=== PATIENT | female | born 1960 | race African-American/Black ===

== ENCOUNTER 2018-02-03 18:34 | Emergency (ER) | payer OTHER, MEDICAID ==
[~2018-02-03] VITALS: Ht 167.6 cm; Wt 71.8 kg
[~2018-02-03 18:34] MED LIST: ARMO250T6 PO; DIAZ10 PO; HYDR-3971 PO; OXYC80 PO
[2018-02-03] MEDS ORDERED: KETOROLAC TROMETHAMINE 10 MG TABLET PO ONE (21:00)
[2018-02-03 21:10] VITALS: BP 149/94
== END 2018-02-03 21:28 | disposition home or self-care (01) ==
LOC: EMS 18:35
DX: S43.402A Unspecified sprain of left shoulder joint, initial encounter (principal); M19.012 Primary osteoarthritis, left shoulder; F12.90 Cannabis use, unspecified, uncomplicated; F17.210 Nicotine dependence, cigarettes, uncomplicated; Z88.1 Allergy status to other antibiotic agents; X50.0XXA Overexertion from strenuous movement or load, initial encounter; Y93.89 Activity, other specified; Y92.89 Other specified places as the place of occurrence of the external cause; Y99.8 Other external cause status
CPT/HCPCS: 99284

== ENCOUNTER 2019-09-09 18:04 | Emergency (ER) | payer OTHER, MEDICAID ==
[~2019-09-09] VITALS: Ht 170.2 cm; Wt 71.8 kg
[~2019-09-09 18:04] MED LIST changes: -ARMO250T6 PO; -DIAZ10 PO; -OXYC80 PO; +OXYC80TA40 PO
[2019-09-09 18:14] VITALS: BP 149/90
== END 2019-09-09 18:40 | disposition left against medical advice (07) ==
LOC: EMS 18:05
DX: M79.89 Other specified soft tissue disorders (principal); Z53.21 Procedure and treatment not carried out due to patient leaving prior to being seen by health care provider

== ENCOUNTER 2019-09-10 18:56 | Emergency (ER) | payer OTHER ==
[~2019-09-10] VITALS: Ht 170.2 cm; Wt 71.8 kg
[2019-09-10 18:57] VITALS: BP 139/83
[2019-09-10] MEDS ORDERED: POVIDONE-IODINE 10% 120 ML SOLUTION TP ONE (19:30)
[2019-09-10] MEDS ORDERED: BUPIVACAINE HCL/PF 0.25% 10 ML VIAL INJ ONE (19:30)
== END 2019-09-10 20:16 | disposition home or self-care (01) ==
LOC: EMS 18:56
DX: L03.012 Cellulitis of left finger (principal); F12.90 Cannabis use, unspecified, uncomplicated; Z88.1 Allergy status to other antibiotic agents
CPT/HCPCS: 10060; 99283; J3490

== ENCOUNTER 2021-05-04 21:04 | Emergency (ER) | payer OTHER ==
[~2021-05-04] VITALS: Ht 170.2 cm; Wt 72.7 kg
[2021-05-04 22:12] VITALS: BP 159/89
== END 2021-05-04 22:55 | disposition home or self-care (01) ==
LOC: EMS 21:11
DX: K02.9 Dental caries, unspecified (principal); R10.30 Lower abdominal pain, unspecified; F12.90 Cannabis use, unspecified, uncomplicated; F17.210 Nicotine dependence, cigarettes, uncomplicated; Z88.1 Allergy status to other antibiotic agents
CPT/HCPCS: 99282; 99406; Z7502

== ENCOUNTER 2022-05-26 14:14 | Emergency (ER) | payer OTHER ==
[~2022-05-26] VITALS: Ht 170.2 cm; Wt 70.9 kg
[2022-05-26 14:49] VITALS: BP 122/83
== END 2022-05-26 19:20 | disposition left against medical advice (07) ==
LOC: EMS 14:26
DX: Z53.21 Procedure and treatment not carried out due to patient leaving prior to being seen by health care provider (principal)
CPT/HCPCS: 71046

== ENCOUNTER 2025-03-24 01:33 | Emergency (ER) | payer OTHER ==
[~2025-03-24] VITALS: Ht 170.2 cm; Wt 69.5 kg
[2025-03-24] MEDS: ACETAMINOPHEN 1000 MG/ISO-OSM 100 ML IV ONE (03:13)
[2025-03-24] MEDS: KETOROLAC TROMETHAMINE 30 MG/ML VIAL IVP ONE (03:17)
[2025-03-24] MEDS: ETOMIDATE 2 MG/ML 10 ML VIAL IVP ONE (03:35)
[2025-03-24] MEDS: PERTUSS(ACELL),DIPH,TET/PF 0.5 ML SYRINGE [ADULT] IM. ONE (03:36)
[2025-03-24 03:44] VITALS: TEMP 98.4
[2025-03-24 05:15] VITALS: O2SAT 99
[2025-03-24 05:20] VITALS: BP 160/82; PULSE 82; RESP 18; O2SAT 97
[2025-03-25] MEDS ORDERED: ACET-3385 PO (18:26)
== END 2025-03-24 05:59 | disposition home or self-care (01) ==
LOC: EMS 01:34
DX: S53.125A Posterior dislocation of left ulnohumeral joint, initial encounter (principal); S52.042A Displaced fracture of coronoid process of left ulna, initial encounter for closed fracture; S00.83XA Contusion of other part of head, initial encounter; F12.90 Cannabis use, unspecified, uncomplicated; G89.29 Other chronic pain; F17.210 Nicotine dependence, cigarettes, uncomplicated; Z98.890 Other specified postprocedural states; V87.8XXA Person injured in other specified noncollision transport accidents involving motor vehicle (traffic), initial encounter; Y93.89 Activity, other specified; Y92.89 Other specified places as the place of occurrence of the external cause; Y99.8 Other external cause status
CPT/HCPCS: 99285; 24600; 96374; 73070; 73080; 73090; 73100; 73130; 90715; 90471; 99152; J3490; J0131

== ENCOUNTER 2025-03-25 18:06 | Emergency (ER) | payer OTHER ==
[~2025-03-25] VITALS: Ht 168.9 cm; Wt 7.1 kg
[2025-03-25 18:18] VITALS: BP 113/97; PULSE 98; RESP 18; TEMP 98.1; O2SAT 98
[2025-03-25] MEDS ORDERED: ACET-3385 PO (18:26)
[2025-03-25] MEDS: ACETAMINOPHEN 500 MG TABLET PO ONE (22:44)
[2025-03-26] MEDS ORDERED: PERCT PO (23:29)
== END 2025-03-26 00:12 | disposition home or self-care (01) ==
LOC: EDUNIT# 18:06 → EMS 18:06
DX: S52.122A Displaced fracture of head of left radius, initial encounter for closed fracture (principal); F12.90 Cannabis use, unspecified, uncomplicated; F17.210 Nicotine dependence, cigarettes, uncomplicated; Z98.890 Other specified postprocedural states; Z79.899 Other long term (current) drug therapy; Z88.1 Allergy status to other antibiotic agents; X58.XXXA Exposure to other specified factors, initial encounter; Y93.89 Activity, other specified; Y92.89 Other specified places as the place of occurrence of the external cause; Y99.8 Other external cause status
CPT/HCPCS: 99283

== ENCOUNTER 2025-03-26 22:59 | Emergency (ER) | payer OTHER ==
[~2025-03-26] VITALS: Ht 160 cm; Wt 70.9 kg
[~2025-03-26 22:59] MED LIST changes: +ACET-3385 PO; -HYDR-3971 PO; -OXYC80TA40 PO
[2025-03-26 23:04] VITALS: TEMP 97.9
[2025-03-26] MEDS ORDERED: PERCT PO (23:29)
[2025-03-27] MEDS: KETOROLAC TROMETHAMINE 30 MG/ML VIAL IM ONE (00:02)
[2025-03-27] MEDS: OxyCODONE HCL/ACETAMINOPHEN 5-325 MG TABLET PO ONE (00:02)
[2025-03-27 01:05] VITALS: BP 149/75; PULSE 99; RESP 19; O2SAT 97
== END 2025-03-27 01:13 | disposition home or self-care (01) ==
LOC: EMS 23:37
DX: S52.122A Displaced fracture of head of left radius, initial encounter for closed fracture (principal); F17.210 Nicotine dependence, cigarettes, uncomplicated; F12.90 Cannabis use, unspecified, uncomplicated; Z79.899 Other long term (current) drug therapy; Z98.890 Other specified postprocedural states; Z88.1 Allergy status to other antibiotic agents; X58.XXXA Exposure to other specified factors, initial encounter; Y93.89 Activity, other specified; Y92.89 Other specified places as the place of occurrence of the external cause; Y99.8 Other external cause status
CPT/HCPCS: 99283; 96372; J1885